=== PATIENT | male | born 1950 | race Caucasian/White ===

== ENCOUNTER 2019-08-07 05:17 | Observation (INO) | payer MEDICARE, BC ==
[2019-08-07] VITALS (24 sets, daily range): BP systolic 116–159; BP diastolic 60–86; PULSE 44–104; RESP 10–21; Ht 185.4 cm; Wt 92.4 kg
[~2019-08-07] VITALS: Ht 185.4 cm; Wt 92.4 kg
[~2019-08-07 05:17] MED LIST: ACET500C5 PO; ASPI-903 PO; ATOR40TA68 PO; CARV3.1260 PO; LISI-313 PO; OMEP20CA17 PO
[2019-08-07] MEDS: LACTATED RINGER'S 1,000 ML IV SCH (06:45)
[2019-08-07] MEDS ORDERED: SEVOFLURANE 15 MIN ONE (07:00)
[2019-08-07] MEDS ORDERED: SUCCINYLCHOLINE CHLORIDE 100 MG/5 ML SYG IV ONE (07:02)
[2019-08-07] MEDS ORDERED: ROCURONIUM 50 MG INJ ONE ×2 (07:02→08:54)
[2019-08-07] MEDS ORDERED: NEOSTIGMINE 3 MG/3 ML SYRINGE ONE ×2 (07:02→08:54)
[2019-08-07] MEDS ORDERED: PROPOFOL 20 ML ONE (07:02)
[2019-08-07] MEDS ORDERED: LIDOCAINE 2% (SDV) 5 ML INJ ONE (07:02)
[2019-08-07] MEDS ORDERED: GLYCOPYRROLATE 0.4 MG INJ ONE ×3 (07:02→08:54)
[2019-08-07] MEDS ORDERED: ROPIVACAINE 0.5 % 30 ML VIAL ONE ×2 (07:05→10:26)
[2019-08-07] MEDS ORDERED: MIDAZOLAM 1 MG/ML 2 ML INJ ONE (07:10)
[2019-08-07] MEDS ORDERED: VANCOMYCIN 1 GM (PMX) 250 ML ONE (07:45)
[2019-08-07] MEDS ORDERED: NEOMYC/POLYMYX/BACIT 30 GM OINT ONE (10:26)
[2019-08-07] MEDS ORDERED: POLYMYXIN/BACITRACIN 1L IRRIG ONE (10:26)
[2019-08-07] MEDS ORDERED: ONDANSETRON 4 MG INJ ONE (11:03)
[2019-08-07] MEDS ORDERED: FENTAnyl 50 MCG/ML VIAL IV PRN ×3 (11:30)
[2019-08-07] MEDS ORDERED: MEPERIDINE 25 MG INJ IV PRN (11:30)
[2019-08-07] MEDS ORDERED: METOCLOPRAMIDE 10 MG INJ IV PRN (11:30)
[2019-08-07] MEDS ORDERED: OXYCODONE/ACETAMINOPHEN (5/325) TAB PO PRN ×3 (11:30→12:00)
[2019-08-07] MEDS ORDERED: MIDAZOLAM 1 MG/ML 2 ML INJ IV PRN (11:30)
[2019-08-07] MEDS ORDERED: ONDANSETRON 4 MG INJ IV PRN ×2 (11:30→12:00)
[2019-08-07] MEDS ORDERED: hydrALAzine 20 MG INJ IV PRN (11:30)
[2019-08-07] MEDS ORDERED: HYDROmorphONE 1 MG/5 ML IV SYRINGE IV PRN ×3 (11:30)
[2019-08-07] MEDS ORDERED: LABETALOL HCL 20MG INJ IV PRN (11:30)
[2019-08-07] MEDS ORDERED: DIPHENHYDRAMINE 50 MG INJ IV PRN (11:30)
[2019-08-07] MEDS ORDERED: EPHEDrine 25 MG/5 ML SYG IV PRN (11:30)
[2019-08-07] MEDS ORDERED: morphine 10 MG INJ IV PRN (12:00)
[2019-08-07] MEDS ORDERED: DIPHENHYDRAMINE 25 MG CAP PO PRN (12:00)
[2019-08-07] MEDS ORDERED: HYDROmorphONE 0.2 MG/ML PCA IV SCH (12:00)
[2019-08-07] MEDS ORDERED: BISACODYL 10 MG SUPP PR PRN (12:00)
[2019-08-07] MEDS ORDERED: HYDROmorphONE 0.2 MG/ML PCA ONE (12:28)
[2019-08-07] MEDS: SOD CHLORIDE 0.9% 1,000 ML IV SCH (13:47)
[2019-08-07] MEDS: SENNA/DOCUSATE NA (8.6MG/50MG) TAB PO SCH (20:24)
[2019-08-07] MEDS: VANCOMYCIN 1 GM (PMX) 250 ML IVPB SCH (20:25)
[2019-08-08 00:43] VITALS: BP 112/55; PULSE 9; RESP 20
[2019-08-08] MEDS: SOD CHLORIDE 0.9% 1,000 ML IV SCH (04:51)
[2019-08-08] MEDS ORDERED: HYDROmorphONE 0.2 MG/ML PCA IV SCH (05:00)
[2019-08-08] MEDS: LACTATED RINGER'S 1,000 ML IV SCH (06:30)
[2019-08-08 07:43] VITALS: BP 159/76; PULSE 79; RESP 20
[2019-08-08] MEDS: SENNA/DOCUSATE NA (8.6MG/50MG) TAB PO SCH (08:41)
[2019-08-08] MEDS: VANCOMYCIN 1 GM (PMX) 250 ML IVPB SCH (08:41)
[2019-08-08] MEDS ORDERED: RIVAROXABAN 10 MG TABLET PO SCH (17:55)
[2019-08-09] MEDS ORDERED: MAGNESIUM HYDROXIDE 30ML CUP PO SCH (21:00)
== END 2019-08-08 13:31 | disposition home or self-care (01) ==
LOC: SDS 05:17 → REC 11:53 → MS1 12:49 → EDSTATUS 16:52
PROVIDERS: ADMIT Orthopaedic Surgery; ATTEND Orthopaedic Surgery
DX: M19.071 Primary osteoarthritis, right ankle and foot (principal); M94.271 Chondromalacia, right ankle and joints of right foot
CPT/HCPCS: 27870; 29898; 73610; 80053; 96361; 96365; 96366; 97161; C1713; G0378; J1170; J2250; J2405; J2710; J2795; J3370; J7030; J7120